=== PATIENT | male | born 1995 | race American Indian/Alaskan Native ===

== ENCOUNTER 2018-01-19 11:56 | Emergency (ER) | payer SELFPAY ==
[2018-01-19 12:10] VITALS: BP 133/74
[2018-01-19] MEDS ORDERED: COLACE PO ONE (14:22)
--- NOTE | 2018-01-19 14:23 | Emergency Department Report ---
ED ENT HPI - General Chief complaint: Earache Stated complaint: l ear pain Time Seen by Provider: 01/19/18 14:22 Source: patient Mode of arrival: Ambulatory Limitations: No Limitations - History of Present Illness MD complaint: ear pain -: Gradual Location: R ear (LOST HEARING FROM PREVIOUS INFECTION), L ear (NEW EAR PAIN) Severity: mild Quality: aching Consistency: constant Associated Symptoms: hearing loss (R), discharge from ear. denies: fever, cough , gum swelling, toothache, pain with swallowing, sore throat, tinnitus, rhinorrhea - Related Data Previous Rx's Medication Instructions Recorded Last Taken Type Amoxicillin [Trimox CAP] 500 mg PO TID #30 capsule 01/19/18 Unknown Rx methylPREDNISolone [Medrol] 4 mg PO DAILY #1 tab.ds.pk 01/19/18 Unknown Rx Allergies Allergy/AdvReac Type Severity Reaction Status Date / Time No Known Allergies Allergy Unverified 01/19/18 12:10 ED Dental HPI - General Chief complaint: Earache Stated complaint: RT EAR PAIN Time Seen by Provider: 01/19/18 14:22 Source: patient Mode of arrival: Ambulatory Limitations: No Limitations - Related Data Previous Rx's Medication Instructions Recorded Last Taken Type Amoxicillin [Trimox CAP] 500 mg PO TID #30 capsule 01/19/18 Unknown Rx methylPREDNISolone [Medrol] 4 mg PO DAILY #1 tab.ds.pk 01/19/18 Unknown Rx Allergies Allergy/AdvReac Type Severity Reaction Status Date / Time No Known Allergies Allergy Unverified 01/19/18 12:10 ED Review of Systems ROS: Stated complaint: RT EAR PAIN Other details as noted in HPI Comment: All other systems reviewed and negative Constitutional: denies: chills, fever Eyes: denies: eye pain ENT: ear pain, hearing loss (R). 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 - Surgical History Past Surgical History?: No - Social History Smoking Status: Never Smoker Substance Use Type: None - Medications Home Medications: Home Medications Medication Instructions Recorded Confirmed Last Taken Type Amoxicillin [Trimox CAP] 500 mg PO TID #30 capsule 01/19/18 Unknown Rx methylPREDNISolone [Medrol] 4 mg PO DAILY #1 tab.ds.pk 01/19/18 Unknown Rx ED Physical Exam - General Limitations: No Limitations General appearance: alert - Head Head exam: Present: atraumatic - Eye Eye exam: Present: PERRL, EOMI - ENT ENT exam: Present: mucous membranes moist - Expanded ENT Exam Expanded Ear exam: Present: other (R EAR TM DARK AND HAS SCARING) TM/Canal exam: Cerumen Impaction: Left TM, Canal Discharge: Left TM - Neck Neck exam: Present: normal inspection - Respiratory Respiratory exam: Present: normal lung sounds bilaterally - Cardiovascular Cardiovascular Exam: Present: regular rate - GI/Abdominal GI/Abdominal exam: Present: soft - Rectal Rectal exam: Present: deferred - Extremities Exam Extremities exam: Present: normal inspection - Back Exam Back exam: Present: normal inspection - Neurological Exam Neurological exam: Present: alert, oriented X3 - Psychiatric Psychiatric exam: Present: normal affect, normal mood - Skin Skin exam: Present: warm, dry ED Course Vital Signs 01/19/18 12:08 Temperature 98.4 F Pulse Rate 61 Respiratory 16 Rate Blood Pressure 133/74 O2 Sat by Pulse 100 Oximetry - Reevaluation(s) Reevaluation #1: 01/19/18 15:24 CERUMEN IMPACTION L EAR HX OF SAME IN R EAR W HEARING DEF NO FEVER NO SORETHROAT NO COUGH Reevaluation #2: 01/19/18 17:26 l ear flushed w mod wax removal tm intact mild redness decadron for swelling and irritation will tx w amox given hearing def caused to r ear by similar problem discussed w pt and his fam the need to see ent and tar leveler. - Ear Wax Removal Left Ear Cerumenolytic Used: Colace Ear Canal Irrigated by: Ear Canal Irrigated With: warm saline using syringe/angiocath Results: Re-examined: cerumen removed completel TM Visible: TM(s) intact, normal appe Ear Canal: atraumatic Patient Tolerated Procedure: well Complications: no problems ED Medical Decision Making - Medical Decision Making wax impaction l ear tm red - Differential Diagnosis CERUMEN IMPACTION W OR WO OM Critical care attestation.: If time is entered above; I have spent that time in minutes in the direct care of this critically ill patient, excluding procedure time. ED Disposition Clinical Impression: Left ear impacted cerumen, Otitis media, Hearing deficit Disposition: TO HOME OR SELFCARE Is pt being admited?: No Does the pt Need Aspirin: No Condition: Stable Instructions: Cerumen Impaction (ED) Additional Instructions: do not put anything in your ear; including qtips follow up with an tar leveler about your hearing. CERUMENEX IS OVER THE COUNTER AND CAN BE USED AT NIGHT ONCE A WEEK TO HELP PREVENT THIS EAR IMPACTION THAT YOU HAVE. LEFT UNTREATED THESE CAN CAUSE EAR INFECTIONS AND HEARING LOSS Prescriptions: Amoxicillin [Trimox CAP] 500 mg PO TID #30 capsule methylPREDNISolone [Medrol] 4 mg PO DAILY #1 tab.ds.pk Referrals: LUZ DAUGHERTY MD [Staff Physician] - 3-5 Days PRIMARY CAREMD [Primary Care Provider] - 3-5 Days ELLA LYONS MD [Staff Physician] - 3-5 Days Time of Disposition: 15:25
[2018-01-19] MEDS ORDERED: DECADRON IM ONE (17:19)
[2018-01-19] MEDS ORDERED: LEVAQUIN PO ONE (17:19)
== END 2018-01-19 17:38 | disposition home or self-care (01) ==
LOC: ED 11:56
DX: H61.22 Impacted cerumen, left ear (principal); H66.92 Otitis media, unspecified, left ear
CPT/HCPCS: 69209; 96372; 99283; J1100

== ENCOUNTER 2018-09-08 15:10 | Emergency (ER) | payer SELFPAY ==
[2018-09-08 15:50] VITALS: BP 135/76
--- NOTE | 2018-09-08 15:54 | Emergency Department Report ---
ED ENT HPI - General Chief complaint: Earache Stated complaint: EAR INFECTION Time Seen by Provider: 09/08/18 15:49 Source: patient Mode of arrival: Ambulatory Limitations: No Limitations - History of Present Illness Initial comments: This is a 23-year-old male nontoxic well in appearance with no signs of distress presents to the ED with complaint of right earache. Patient denies any hearing loss. Denies any mastoid tenderness. Denies any fever, chills, headache, nausea, vomiting, chest pain or SOB. Denies any other complaints. Denies any allergies. MD complaint: ear pain -: days(s) (1) Location: R ear Severity: mild Severity scale (0 -10): 8 Quality: aching Consistency: constant Improves with: none Worsens with: none Associated Symptoms: denies: fever, cough, gum swelling, toothache, sore throat, tinnitus, hearing loss, discharge from ear, rhinorrhea - Related Data Previous Rx's Medication Instructions Recorded Last Taken Type Amoxicillin [Trimox CAP] 500 mg PO TID #30 capsule 01/19/18 Unknown Rx methylPREDNISolone [Medrol] 4 mg PO DAILY #1 tab.ds.pk 01/19/18 Unknown Rx Amoxicillin [Amoxicillin TAB] 875 mg PO BID #20 tablet 09/08/18 Unknown Rx Ibuprofen [Motrin] 600 mg PO Q8H PRN #20 tablet 09/08/18 Unknown Rx Allergies Allergy/AdvReac Type Severity Reaction Status Date / Time No Known Allergies Allergy Unverified 01/19/18 12:10 ED Dental HPI - General Chief complaint: Earache Stated complaint: EAR INFECTION Time Seen by Provider: 09/08/18 15:49 Source: patient Mode of arrival: Ambulatory Limitations: No Limitations - Related Data Previous Rx's Medication Instructions Recorded Last Taken Type Amoxicillin [Trimox CAP] 500 mg PO TID #30 capsule 01/19/18 Unknown Rx methylPREDNISolone [Medrol] 4 mg PO DAILY #1 tab.ds.pk 01/19/18 Unknown Rx Amoxicillin [Amoxicillin TAB] 875 mg PO BID #20 tablet 09/08/18 Unknown Rx Ibuprofen [Motrin] 600 mg PO Q8H PRN #20 tablet 09/08/18 Unknown Rx Allergies Allergy/AdvReac Type Severity Reaction Status Date / Time No Known Allergies Allergy Unverified 01/19/18 12:10 ED Review of Systems ROS: Stated complaint: EAR INFECTION Other details as noted in HPI Constitutional: denies: chills, fever Eyes: denies: eye pain, eye discharge, vision change ENT: denies: ear pain, throat pain Respiratory: denies: cough, shortness of breath, wheezing Cardiovascular: denies: chest pain, palpitations Endocrine: no symptoms reported Gastrointestinal: denies: abdominal pain, nausea, diarrhea Genitourinary: denies: urgency, dysuria Musculoskeletal: denies: back pain, joint swelling, arthralgia Skin: denies: rash, lesions Neurological: denies: headache, weakness, paresthesias Psychiatric: denies: anxiety, depression Hematological/Lymphatic: denies: easy bleeding, easy bruising ED Past Medical Hx - Past Medical History Previous Medical History?: Yes 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 - Surgical History Past Surgical History?: No - Social History Smoking Status: Never Smoker Substance Use Type: None - Medications Home Medications: Home Medications Medication Instructions Recorded Confirmed Last Taken Type Amoxicillin [Trimox CAP] 500 mg PO TID #30 capsule 01/19/18 Unknown Rx methylPREDNISolone [Medrol] 4 mg PO DAILY #1 tab.ds.pk 01/19/18 Unknown Rx Amoxicillin [Amoxicillin TAB] 875 mg PO BID #20 tablet 09/08/18 Unknown Rx Ibuprofen [Motrin] 600 mg PO Q8H PRN #20 tablet 09/08/18 Unknown Rx ED Physical Exam - General Limitations: No Limitations General appearance: alert, in no apparent distress - Head Head exam: Present: atraumatic, normocephalic - Eye Eye exam: Present: normal appearance - Expanded ENT Exam Expanded Ear exam: Present: normal external inspection TM/Canal exam: Erythema: Right TM, Bulging: Right TM Mouth exam: Present: normal external inspection Teeth exam: Present: normal inspection Throat exam: Positive: normal inspection - Neck Neck exam: Present: normal inspection. Absent: tenderness, meningismus, lymphadenopathy - Extremities Exam Extremities exam: Present: normal inspection, full ROM - Back Exam Back exam: Present: normal inspection, full ROM - Neurological Exam Neurological exam: Present: alert, oriented X3 - Psychiatric Psychiatric exam: Present: normal affect, normal mood - Skin Skin exam: Present: warm, dry, intact, normal color. Absent: rash ED Course Vital Signs 09/08/18 15:48 Temperature 98.8 F Pulse Rate 91 H Respiratory 16 Rate Blood Pressure 135/76 O2 Sat by Pulse 98 Oximetry - Reevaluation(s) Reevaluation #1: 09/08/18 15:52 Patient is speaking in full sentences with no signs of distress noted. ED Medical Decision Making - Medical Decision Making Patient was instructed to Follow-up with a primary care doctor in 3-5 days or if symptoms worsen and continue return to emergency room as soon as possible. At time of discharge, the patient does not seem toxic or ill in appearance. No acute signs of distress noted. Patient agrees to discharge treatment plan of care. No further questions noted by the patient. Critical care attestation.: If time is entered above; I have spent that time in minutes in the direct care of this critically ill patient, excluding procedure time. ED Disposition Clinical Impression: Right otitis media Disposition: DC-01 TO HOME OR SELFCARE Is pt being admited?: No Does the pt Need Aspirin: No Condition: Stable Instructions: Otitis Externa (ED) Additional Instructions: Follow-up with a primary care doctor in 3-5 days or if symptoms worsen and continue return to emergency room as soon as possible. Prescriptions: Amoxicillin [Amoxicillin TAB] 875 mg PO BID #20 tablet Ibuprofen [Motrin] 600 mg PO Q8H PRN #20 tablet PRN Reason: Pain Referrals: PRIMARY CARE, [Referring] - 3-5 Days SUNITA PINO MD [Staff Physician] - 3-5 Days VIRGINIE MCGRATH MD [Staff Physician] - 3-5 Days [facility] [Outside] - 3-5 Days [facility] [Outside] - 3-5 Days Forms: Work/School Release Form(ED)
== END 2018-09-08 16:04 | disposition home or self-care (01) ==
LOC: ED 15:10
DX: H66.91 Otitis media, unspecified, right ear (principal)
CPT/HCPCS: 99282

== ENCOUNTER 2019-02-23 18:31 | Emergency (ER) | payer SELFPAY ==
--- NOTE | 2019-02-23 19:16 | Emergency Department Report ---
Blank Doc - Documentation Documentation: 23-year-old male that presents with right hand pain after hitting against the car door. Stated also has a old fracture to same hand last month. This initial assessment/diagnostic orders/clinical plan/treatment(s) is/are subject to change based on patient's health status, clinical progression and re- assessment by fellow clinical providers in the ED. Further treatment and workup at subsequent clinical providers discretion. Patient/guardians urged not to elope from the ED as their condition may be serious if not clinically assessed and managed. Initial orders include: 1- Patient sent to [facility] for further evaluation and treatment 2- xrays
[2019-02-23 19:22] VITALS: BP 118/70
--- NOTE | 2019-02-23 20:36 | XRay Report ---
RIGHT HAND 3 VIEWS INDICATION / CLINICAL INFORMATION: hand pain. Injury 3 weeks ago. COMPARISON: None available. FINDINGS: There is an almost longitudinally oriented fracture involving the base of the fifth metacarpal, exten ding into the articular surface. This fracture is only mildly displaced. Signer Name: Vito Harvey MD Signed: 02/23/2019 8:32 PM Workstation Name: [id number]
--- NOTE | 2019-02-23 20:58 | Emergency Department Report ---
ED Upper Extremity Inj HPI - General Chief Complaint: Extremity Injury, Upper Stated Complaint: RT HAND POSS BROKE/PAIN Time Seen by Provider: 02/23/19 19:15 Source: patient Mode of arrival: Ambulatory Limitations: No Limitations - History of Present Illness Initial Comments: 23-year-old -[place] Citizen male presents emergency department complaining of right hand pain after a trip and fall while playing basketball. He states that he had a pre-existing fracture to the right hand a few months ago and thinks he may have reaggravated the injury with the fall. Pain is dull and throbbing with some swelling no numbness or tingling is noted. No pain to his wrist or shoulder or elbow. Pain is dull and throbbing worse with palpation and certain range of motion. MD Complaint: Injury to:: right -: Sudden, days(s) (2) Other Extremity Injury: Hand: Right (lateral aspect of the right hand) Handedness: right Place: outdoors Severity scale (0 -10): 10 Improves With: none Worsens With: movement of extremity Context: direct blow Associated Symptoms: denies: weakness, numbness, neck pain - Related Data Previous Rx's Medication Instructions Recorded Last Taken Type Amoxicillin [Trimox CAP] 500 mg PO TID #30 capsule 01/19/18 Unknown Rx methylPREDNISolone [Medrol] 4 mg PO DAILY #1 tab.ds.pk 01/19/18 Unknown Rx Amoxicillin [Amoxicillin TAB] 875 mg PO BID #20 tablet 09/08/18 Unknown Rx Ibuprofen [Motrin] 600 mg PO Q8H PRN #20 tablet 09/08/18 Unknown Rx Allergies Allergy/AdvReac Type Severity Reaction Status Date / Time No Known Allergies Allergy Unverified 01/19/18 12:10 ED Review of Systems ROS: Stated complaint: RT HAND POSS BROKE/PAIN Other details as noted in HPI Comment: All other systems reviewed and negative ED Past Medical Hx - Past Medical History Previous Medical History?: No 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 - Surgical History Past Surgical History?: No - Social History Smoking Status: Never Smoker Substance Use Type: None - Medications Home Medications: Home Medications Medication Instructions Recorded Confirmed Last Taken Type Amoxicillin [Trimox CAP] 500 mg PO TID #30 capsule 01/19/18 Unknown Rx methylPREDNISolone [Medrol] 4 mg PO DAILY #1 tab.ds.pk 01/19/18 Unknown Rx Amoxicillin [Amoxicillin TAB] 875 mg PO BID #20 tablet 09/08/18 Unknown Rx Ibuprofen [Motrin] 600 mg PO Q8H PRN #20 tablet 09/08/18 Unknown Rx ED Physical Exam - General Limitations: No Limitations General appearance: alert, in no apparent distress - Head Head exam: Present: atraumatic, normocephalic - Eye Eye exam: Present: normal appearance, PERRL, EOMI Pupils: Present: normal accommodation - ENT ENT exam: Present: normal exam, normal orophraynx, mucous membranes moist, TM's normal bilaterally - Neck Neck exam: Present: normal inspection, full ROM - Respiratory Respiratory exam: Present: normal lung sounds bilaterally. Absent: respiratory distress - Cardiovascular Cardiovascular Exam: Present: regular rate, normal rhythm. Absent: systolic murmur, diastolic murmur, rubs, gallop - GI/Abdominal GI/Abdominal exam: Present: soft, normal bowel sounds - Rectal Rectal exam: Present: deferred - Extremities Exam Extremities exam: Present: normal inspection - Expanded Upper Extremity Exam Right Shoulder Exam: Present: normal inspection, full ROM Upper Arm exam: Present: normal inspection, full ROM Elbow exam: Present: normal inspection, full ROM Hand Wrist exam: Present: tenderness, swelling. Absent: ecchymosis, crepidus, nail avulsion, subungual hematoma Hand L/R Back: 1 - Swollen pain and tenderness to this regioN pulses 2+ capillary refills are brisk Vascular: Present: normal capillary refill - Back Exam Back exam: Present: normal inspection. Absent: CVA tenderness (R), CVA tenderness (L) - Neurological Exam Neurological exam: Present: alert, oriented X3 - Psychiatric Psychiatric exam: Present: normal affect, normal mood - Skin Skin exam: Present: warm, dry, intact, normal color. Absent: rash ED Course Vital Signs 02/23/19 19:19 Temperature 98.1 F Pulse Rate 61 Respiratory 18 Rate Blood Pressure 118/70 O2 Sat by Pulse 100 Oximetry - Procedure Description Procedures done: Right hand boxer's fracture patient placed in ulnar gutter splint prefab Velcro pulses 2+ neurovascularly intact ED Medical Decision Making - Radiology Data Radiology results: report reviewed Patient: DARYL HAIDER MR#: [id number] : 1995 Acct:[id number] Age/Sex: 23 / M ADM Date: 02/23/19 Loc: ED Attending Dr: Ordering Physician: TORSTEN HANNON NP Date of Service: 02/23/19 Procedure(s): XR hand 3+V RT Accession Number(s): [id number] cc: TORSTEN HANNON NP Fluoro Time In Minutes: RIGHT HAND 3 VIEWS INDICATION / CLINICAL INFORMATION: hand pain. Injury 3 weeks ago. COMPARISON: None available. FINDINGS: There is an almost longitudinally oriented fracture involving the base of the fifth metacarpal, extending into the articular surface. This fracture is only mildly displaced. Signer Name: Vito Harvey MD Signed: 02/23/2019 8:32 PM Workstation Name: [id number] Transcribed By: TM Dictated By: Vito Harvey MD Electronically Authenticated By: Vito Harvey MD Signed Date/Time: 02/23/192031 Critical care attestation.: If time is entered above; I have spent that time in minutes in the direct care of this critically ill patient, excluding procedure time. ED Disposition Clinical Impression: Closed fracture of 5th metacarpal Disposition: DC-01 TO HOME OR SELFCARE Is pt being admited?: No Does the pt Need Aspirin: No Condition: Stable Instructions: Boxer Fracture (ED) Referrals: SE LANE MD [Staff Physician] - 3-5 Days
[2019-02-23] MEDS ORDERED: HYDROcodone/ACETAMINOPHEN 5-325 MG TAB PO STA (22:09)
== END 2019-02-23 22:22 | disposition home or self-care (01) ==
LOC: ED 18:31
DX: S62.316A Displaced fracture of base of fifth metacarpal bone, right hand, initial encounter for closed fracture (principal); Z79.899 Other long term (current) drug therapy; W21.05XA Struck by basketball, initial encounter; Y93.67 Activity, basketball; Y92.488 Other paved roadways as the place of occurrence of the external cause; Y99.8 Other external cause status